=== PATIENT | female | born 1995 | race African-American/Black ===

== ENCOUNTER 2017-12-28 14:40 | Emergency (ER) | payer MEDICAID ==
[~2017-12-28] VITALS: Ht 162.6 cm; Wt 122.5 kg
[2017-12-28 15:04] VITALS: BP 137/84
== END 2017-12-28 17:15 | disposition home or self-care (01) ==
LOC: EDBD 14:40 → ER 14:40
DX: N39.0 Urinary tract infection, site not specified (principal); H60.93 Unspecified otitis externa, bilateral